=== PATIENT | male | born 1990 ===

== ENCOUNTER 2017-11-17 20:40 | Emergency (ER) | payer SELFPAY ==
[2017-11-17 20:40] VITALS: BMI 26.6
[2017-11-17 21:21] VITALS: BP 140/83; PULSE 89; RESP 16; TEMP 97.5; O2SAT 99
--- NOTE | 2017-11-17 21:50 | ED PDOC ---
Upper Extremity Pain/Injury Time Seen by Provider: 11/17/17 21:47 Chief Complaint (Nursing): Finger,Hand,&Wrist Chief Complaint (Provider): right hand pain History Per: Patient Additional Complaint(s): 27-year-old right-hand dominant male presents with pain to right hand status post a tool box falling on top of his hand at work at 6 PM this evening. Patient sustained a minor abrasion to index finger. He states tetanus is up-to- date. Patient feels stiffness and pain in all digits of right hand. No medication taken for pain relief. Patient denies any numbness or tingling to the affected area. PMD: none Past Medical History Reviewed: Historical Data, Nursing Documentation, Vital Signs Vital Signs: Last Vital Signs Temp 97.5 F L 11/17/17 21:18 Pulse 89 11/17/17 21:18 Resp 16 11/17/17 21:18 BP 140/83 11/17/17 21:18 Pulse Ox 99 11/17/17 21:18 - Medical History PMH: No Chronic Diseases - Surgical History Surgical History: No Surg Hx - Family History Family History: States: No Known Family Hx - Living Arrangements Living Arrangements: With Family - Social History Current smoker - smoking cessation education provided: Yes Alcohol: None Drugs: Denies - Immunization History Hx Tetanus Toxoid Vaccination: Yes - Home Medications Home Medications: Ambulatory Orders Medication Instructions Recorded Albuterol HFA [Ventolin HFA 90 2 puff IH [id number] PRN #1 inhaler 03/08/16 mcg/actuation (8 g)] Azithromycin [Zithromax] 250 mg PO DAILY #6 tablet 03/08/16 Prednisone 40 mg PO DAILY #6 tablet 03/08/16 - Allergies Allergies/Adverse Reactions: Allergies Allergy/AdvReac Type Severity Reaction Status Date / Time No Known Allergies Allergy Verified 11/17/17 21:18 Review of Systems ROS Statement: Except As Marked, All Systems Reviewed And Found Negative Musculoskeletal: Positive for: Other (right hand injury) Physical Exam - Reviewed Nursing Documentation Reviewed: Yes Vital Signs Reviewed: Yes - Physical Exam Appears: Positive for: Well, Non-toxic, No Acute Distress Skin: Negative for: Rash Eye Exam: Positive for: Normal appearance Extremity: Positive for: Other (Mild swelling and tenderness to dorsal aspect of right hand, full range of motion of all digits without pain, no obvious bony deformity, superficial abrasion noted to dorsal aspect of right index finger overlying the PIP, no active bleeding, neurovascular intact, full range of motion right wrist with snuffbox tenderness) Neurologic/Psych: Positive for: Alert, Oriented - ECG O2 Sat by Pulse Oximetry: 99 Pulse Ox Interpretation: Normal - Other Rad right hand x-ray X-Ray: Interpreted by Me, Viewed By Me X-Ray Interpretation: no fx, no dis Medical Decision Making Medical Decision Makin27 year old with right hand pain Plan: PO motrin X-ray right hand Patient is aware of x-ray results, all questions answered. Splint to hand declined. Patient was given RICE instructions, advised NSAID's prn pain and follow up with clinic or hand specialist, referral provided. Disposition - Clinical Impression Clinical Impression: Hand contusion, Hand abrasion - Patient ED Disposition Is Patient to be Admitted: No Counseled Patient/Family Regarding: Studies Performed, Diagnosis, Need For Followup - Disposition Referrals: Alex Paz MD [Medical Doctor] - Disposition: Routine/Home Disposition Time: 22:28 Condition: STABLE Additional Instructions: Ice and elevate affected areas often as possible. Take [id number] Motrin ( 3 tablets every 6 hours) for pain and swelling. Follow up with primary care doctor or hand specialist for any persistent symptoms. Instructions: Abrasion (ED), Hand Sprain (ED), Contusion in Adults (ED) Forms: [facility] ([place]ian)
--- NOTE | 2017-11-18 11:15 | RAD ---
PROCEDURE: Right Hand Radiographs. HISTORY: trauma COMPARISON: None. FINDINGS: BONES: Normal. No fracture. JOINTS: Normal. No osteoarthritic changes. SOFT TISSUES: Focal soft tissue swelling laterally at the level of the 5th metacarpal. No visulaized radiopaque/visualized foreign body. OTHER FINDINGS: None. IMPRESSION: Soft tissue swelling without acute articular or osseous abnormality. Concordant results with the preliminary interpretation rendered by the emergency department physician procedure.
== END 2017-11-17 22:35 | disposition home or self-care (01) ==
LOC: H.ER 20:40
DX: S60.221A Contusion of right hand, initial encounter (principal); S60.511A Abrasion of right hand, initial encounter; W22.8XXA Striking against or struck by other objects, initial encounter; Y99.0 Civilian activity done for income or pay